=== PATIENT | male | born 1960 | race Caucasian/White ===

== ENCOUNTER 2018-03-08 23:26 | Emergency (ER) | payer SELFPAY ==
[2018-03-09] MEDS ORDERED: cloNIDine 0.1 MG TAB ONE (00:14)
== END 2018-03-09 00:30 | disposition home or self-care (01) ==
LOC: MADERS 23:26
DX: K43.9 Ventral hernia without obstruction or gangrene (principal); I10 Essential (primary) hypertension; F17.220 Nicotine dependence, chewing tobacco, uncomplicated
CPT/HCPCS: 99283

== ENCOUNTER 2018-08-13 09:07 | Emergency (ER) | payer SELFPAY ==
--- NOTE | 2018-08-13 10:02 | RAD ---
XR Chest Pa Lat STANDARD History: Dyspnea Comparison: None. Findings: Heart size is enlarged. Mild edema. Trace effusions. No pneumothorax. No acute osseous abno rmality. Impression: Cardiomegaly and mild pulmonary edema.
[2018-08-13] MEDS ORDERED: Cephalexin 500 MG CAP ONE (10:24)
[2018-08-13] MEDS ORDERED: Furosemide 40 MG/4 ML VIAL ONE (10:24)
[2018-08-13] MEDS ORDERED: Nitroglycerin 2% Ointment 1 INCH/1 GM Packet ONE (10:24)
[2018-08-13] MEDS ORDERED: Amlodipine 5 MG TAB ONE (10:26)
[2018-08-13 10:41] LABS: ALT (SGPT) 13 U/L (8-55); AST (SGOT) 14 U/L (5-34); Alkaline Phosphatase 76 U/L (40-150); Anion Gap 12 mmol/L (10-20); BUN (Urea Nitrogen) 20 mg/dL (8.4-25.7); Bilirubin, Total 0.8 mg/dL (0.2-1.2); Calc. Creatinine Clearance 0 mL/min (70-130); Calcium 8.9 mg/dL (7.8-10.44); Carbon Dioxide 30 mmol/L (22-29); Chloride 107 mmol/L (98-107); Estimated GFR-MDRD 47; Glucose 102 mg/dL (70-105); Sodium 145 mmol/L (136-145)
[2018-08-13 10:43] LABS: #Basophils 0.1 thou/uL (0.0-0.2); #Eosinphils 0.3 thou/uL (0.0-0.7); #Lymphocytes 1.3 thou/uL (1.20-3.40); #Monocytes 0.5 thou/uL (0.11-0.59); #Neutrophils 6.7 thou/uL (1.40-6.50); %Basophils 0.7 % (0.0-1.0); %Eosinophils 3.3 % (0.0-10.0); %Lymphocytes 14.2 % (21.0-51.0); %Monocytes 5.8 % (0.0-10.0); %Neutrophils 75.9 % (42.0-75.0); Hemoglobin 11.5 g/dL (14.0-18.0); MDiff Complete? YES; Mean Corpuscular HGB CONC 31.2 g/dL (32.0-36.0); Mean Corpuscular Hemoglobin 24.3 pg (27.0-31.0); Mean Corpuscular Volume 77.9 fL (78.0-98.0); Mean Platelet Volume 5.8 fL (7.4-10.4); Platelet Count 240 thou/uL (130-400); Polychromasia SLIGHT = 2-3 cells (100X) (0-2/hpf); RBC Distribution Width 14.7 % (11.5-14.5); Red Blood Cell (RBC) Count 4.73 mill/uL (4.70-6.10); White Blood Cell (WBC) Count 8.8 thou/uL (4.8-10.8)
== END 2018-08-13 11:40 | disposition left against medical advice (07) ==
LOC: MADERS 09:07
DX: N17.9 Acute kidney failure, unspecified (principal); I16.9 Hypertensive crisis, unspecified; I10 Essential (primary) hypertension; J81.0 Acute pulmonary edema; L73.9 Follicular disorder, unspecified; F17.220 Nicotine dependence, chewing tobacco, uncomplicated; Z79.899 Other long term (current) drug therapy
CPT/HCPCS: 71046; 80053; 82553; 83880; 84484; 85025; 93005; 96374; J1940